=== PATIENT | male | born 1980 | race African-American/Black ===

== ENCOUNTER 2016-10-01 13:24 | Inpatient (IN) | payer OTHER ==
[2016-10-01 13:59] VITALS: BMI 27.7
--- NOTE | 2016-10-01 14:46 | HP ---
CIWA Score - CIWA Score Nausea/Vomitin-No Nausea/No Vomiting Muscle Tremors: 4-Moderate,w/Arms Extend Anxiety: 3 Agitation: 4-Moderately Restless Paroxysmal Sweats: 3 Orientation: 0-Oriented Tacttile Disturbances: 0-None Auditory Disturbances: 0-None Visual Disturbances: 0-None Headache: 0-None Present CIWA-Ar Total Score: 14 Admission ROS BHS - HPI Chief Complaint: I need to stop using and get cleaned. Allergies/Adverse Reactions: Allergies Allergy/AdvReac Type Severity Reaction Status Date / Time ibuprofen Allergy Severe Swelling Verified 10/01/16 14:27 History of Present Illness: pt is a 36yr old male with a history of alcohol, pcp and cocaine dependence seeking detox for treatment. Exam Limitations: No Limitations - Ebola screening Have you traveled outside of the country in the last 21 days: No Have you had contact with anyone from an Ebola affected area: No Have you been sick,other than usual withdrawal symptoms: No Do you have a fever: No - Review of Systems Constitutional: Chills, Diaphoresis, Loss of Appetite, Night Sweats, Changes in sleep EENT: reports: No Symptoms Reported Respiratory: reports: No Symptoms reported Cardiac: reports: No Symptoms Reported GI: reports: No Symptoms Reported : reports: No Symptoms Reported Musculoskeletal: reports: Joint Pain (right knee pain) Integumentary: reports: Flushing, Sweating Neuro: reports: Tingling, Tremors Endocrine: reports: Excessive Sweating, Flushing, Intolerance to Cold, Intolerance to Heat Hematology: reports: No Symptoms Reported Psychiatric: reports: Judgement Intact, Mood/Affect Appropiate, Orientated x3, Agitated, Anxious Other Systems: Reviewed and Negative Patient History - Patient Medical History Hx Anemia: No Hx Asthma: No Hx Chronic Obstructive Pulmonary Disease (COPD): No Hx Cancer: No Hx Cardiac Disorders: No Hx Congestive Heart Failure: No Hx Hypertension: Yes Hx Hypercholesterolemia: No Hx Pacemaker: No HX Cerebrovascular Accident: No Hx Seizures: No Hx Dementia: No Hx Diabetes: No Hx Gastrointestinal Disorders: No Hx Liver Disease: No Hx Genitourinary Disorders: No Hx Sexually Transmitted Disorders: No Hx Renal Disease (ESRD): No Hx Thyroid Disease: No Hx Human Immunodeficiency Virus (HIV): No (negative) Hx Hepatitis C: No Hx Depression: Yes Hx Suicide Attempt: No (denies any S/H ideation at present. did have thoughts in the past) Hx Bipolar Disorder: No Hx Schizophrenia: No - Patient Surgical History Past Surgical History: No - PPD History Previous Implant?: Yes Documented Results: Negative w/o proof PPD to be Administered?: Yes - Reproductive History Patient is a Female of Child Bearing Age (11 -55 yrs old): No - Smoking Cessation Smoking history: Current every day smoker Have you smoked in the past 12 months: Yes Aproximately how many cigarettes per day: 10 Hx Chewing Tobacco Use: Yes Initiated information on smoking cessation: Yes 'Breaking Loose' booklet given: 10/01/16 - Substance & Tx. History Hx Alcohol Use: Yes Hx Substance Use: Yes Substance Use Type: Alcohol, Cocaine, Marijuana Hx Substance Use Treatment: No (this is his first detox) - Substances Abused Cocaine Route: Inhalation Frequency: Daily Amount used: $50-100 Age of first use: 22 Date of Last Use: 09/28/16 PCP Route: Smoking Frequency: Daily Amount used: $60 Age of first use: 35 Date of Last Use: 09/27/16 Alcohol-beer/cognac/rum Route: Oral Frequency: Daily Amount used: 1-6 pk./1 pt. Age of first use: 20 Date of Last Use: 09/28/16 Marijuana Route: Smoking Frequency: Daily Amount used: $40 Age of first use: 16 Date of Last Use: 09/27/16 Family Disease History - Family Disease History Family History: Denies Admission Physical Exam BHS - Vital Signs Vital Signs: Vital Signs - 24 hr 10/01/16 13:45 Temperature 98 F Pulse Rate 87 Respiratory 20 Rate Blood Pressure 158/80 - Physical General Appearance: Yes: Appropriately Dressed, Moderate Distress, Tremorous, Irritable, Sweating, Anxious HEENTM: Yes: Normal Voice, Nasal Congestion Respiratory: Yes: Lungs Clear, Normal Breath Sounds, No Respiratory Distress Neck: Yes: No masses,lesions,Nodules Breast: Yes: Within Normal Limits Cardiology: Yes: Regular Rhythm, Regular Rate, S1, S2 Abdominal: Yes: Normal Bowel Sounds, Non Tender, Soft Genitourinary: Yes: Within Normal Limits Back: Yes: Normal Inspection Musculoskeletal: Yes: Joint Stiffness (right knee pain) Extremities: Yes: Normal Capillary Refill, Normal Inspection, Tremors Neurological: Yes: Fully Oriented, Alert, Normal Response Integumentary: Yes: Normal Color, Diaphoresis Lymphatic: Yes: Within Normal Limits - Diagnostic (1) Alcohol dependence with uncomplicated withdrawal Current Visit: Yes Status: Chronic (2) Nicotine dependence Current Visit: Yes Status: Chronic Qualifiers: Nicotine product type: cigarettes Substance use status: uncomplicated Qualified Code(s): F17.210 - Nicotine dependence, cigarettes, uncomplicated (3) PCP dependence Current Visit: Yes Status: Chronic (4) Knee pain, chronic Current Visit: Yes Status: Chronic Qualifiers: Laterality: right Qualified Code(s): M25.561 - Pain in right knee; G89.29 - Other chronic pain Cleared for Admission S - Detox or Rehab [facility] Level of Care: Medically Managed Detox Regimen/Protocol: Librium S Breath Alcohol Content Breath Alcohol Content: 0 Urine Drug Screen - Results Drug Screen Negative: No Urine Drug Screen Results: MAURIZIO-Cocaine, PCP-Phencyclidine
[2016-10-01] MEDS ORDERED: MAGNESIUM HYDROX 2400MG/30ML ORAL SUSPENSION 30 ML CUP PO PRN (15:02)
[2016-10-01] MEDS ORDERED: P-EPHED 60MG/TRIPROLIDI 2.5MG TABLET PO PRN (15:02)
[2016-10-01] MEDS ORDERED: chlordiazePOXIDE HCL 25 MG CAPSULE PO ONE (15:02)
[2016-10-01] MEDS ORDERED: MAG HYDROX/AL HYDROX/SIMETH 30 ML UNIT-DOSE CUP PO PRN (15:02)
[2016-10-01] MEDS ORDERED: chlordiazePOXIDE HCL 25 MG CAPSULE PO PRN (15:02)
[2016-10-01] MEDS ORDERED: LOPERAMIDE HCL 2 MG CAPSULE PO PRN (15:02)
[2016-10-01] MEDS ORDERED: ACETAMINOPHEN 325 MG TABLET (FP) PO PRN (15:02)
[2016-10-01] MEDS ORDERED: NICOTINE POLACRILEX 4 MG GUM BC PRN (15:02)
[2016-10-01] MEDS ORDERED: MAGNESIUM CITRATE 300 ML BOTTLE PO PRN (15:02)
[2016-10-01] MEDS ORDERED: hydrOXYzine PAMOATE 50 MG CAPSULE (FP) PO PRN (15:02)
[2016-10-01] MEDS ORDERED: guaiFENesin/D-METHORPHAN HB 10 ML UNIT-DOSE CUPS PO PRN (15:02)
[2016-10-01] MEDS ORDERED: MENTHOL/PHENOL 1 EACH UD MM PRN (15:02)
[2016-10-01] MEDS: chlordiazePOXIDE HCL 25 MG CAPSULE PO SCH ×2 (18:38→22:25)
[2016-10-01] MEDS: THIAMINE HCL 100 MG TABLET (FP) PO SCH (22:25)
[2016-10-01] MEDS: diphenhydrAMINE HCL 50 MG CAPSULE PO PRN (22:27)
[2016-10-01 23:31] LABS: URINE APPEARANCE CLEAR; URINE BILIRUBIN NEGATIVE (NEGATIVE); URINE BLOOD NEGATIVE (NEGATIVE); URINE COLOR YELLOW; URINE GLUCOSE (UA) NEGATIVE (NEGATIVE); URINE KETONE TRACE (NEGATIVE); URINE LEUK ESTERASE NEGATIVE (NEGATIVE); URINE NITRITE NEGATIVE (NEGATIVE); URINE UROBILINOGEN NEGATIVE mg/dL (0.2-1.0)
[2016-10-01 23:32] LABS: URINE PROTEIN 1+ (NEGATIVE)
[2016-10-02 00:57] LABS: CALCIUM OXALATE CRYSTALS RARE /hpf (NONE SEEN); URINE HYALINE CAST 1 /lpf; URINE MUCUS MANY; URINE RBC <1 /hpf (0-3); URINE WBC 1 /hpf (3-5)
[2016-10-02] MEDS: chlordiazePOXIDE HCL 25 MG CAPSULE PO SCH ×4 (06:00→22:22)
[2016-10-02 10:08] LABS: ALBUMIN 3.8 g/dl (3.4-5.0); ANION GAP 8 (8-16); CO2 28 mmol/L (21-32)
[2016-10-02 10:11] LABS: ALK PHOS 56 U/L (45-117); BILIRUBIN,TOTAL 0.2 mg/dL (0.2-1.0); CALCIUM 8.8 mg/dL (8.5-10.1); CREATININE 1.2 mg/dL (0.7-1.3); GLUCOSE,RANDOM 105 mg/dL (74-106); SGOT/AST 12 U/L (15-37); SGPT/ALT 24 U/L (12-78); TOT PROT 7.2 g/dl (6.4-8.2)
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
[2016-10-02 10:21] LABS: MCHC 31.8 g/dl (32.0-35.9); MEAN CELL VOLUME 85.1 fl (80-96); MEAN PLT VOLUME 9.6 fl (7.5-11.1); PLATELET COUNT 260 K/MM3 (134-434); RDW 13.5 % (11.9-15.9); WHITE BLOOD COUNT 7.1 K/mm3 (4.0-10.0)
[2016-10-02] MEDS: NICOTINE 21 MG/24 HOURS TOPICAL PATCH TD SCH (10:21)
[2016-10-02] MEDS: PRENATAL VITAMINS W/ FOLIC ACID TABLET (FP) PO SCH (10:21)
--- NOTE | 2016-10-02 12:55 | EKG ---
Test Reason : Blood Pressure : / mmHG Vent. Rate : 065 BPM Atrial Rate : 065 BPM P-R Int : 166 ms QRS Dur : 092 ms QT Int : 404 ms P-R-T Axes : 070 028 040 degrees QTc Int : 420 ms NORMAL SINUS RHYTHM WITH SINUS ARRHYTHMIA NORMAL ECG NO PREVIOUS ECGS AVAILABLE Confirmed by KAEL DUMONT, GABINO ([id number]) on 10/02/2016 12:55:22 PM Referred By: Garrett Redmond Confirmed By:GABINO SCRUGGS MD
[2016-10-02 15:00] LABS: HIV 1 & 2 AB NEGATIVE; HIV 1 AGp24 NEGATIVE
[2016-10-02] MEDS: THIAMINE HCL 100 MG TABLET (FP) PO SCH (22:22)
[2016-10-02] MEDS: diphenhydrAMINE HCL 50 MG CAPSULE PO PRN (22:22)
[2016-10-03] MEDS: chlordiazePOXIDE HCL 25 MG CAPSULE PO SCH ×2 (05:55→10:22)
[2016-10-03] MEDS: NICOTINE 21 MG/24 HOURS TOPICAL PATCH TD SCH (10:22)
[2016-10-03] MEDS: PRENATAL VITAMINS W/ FOLIC ACID TABLET (FP) PO SCH (10:22)
--- NOTE | 2016-10-03 10:40 | PN ---
[facility] CIWA - CIWA Score Nausea/Vomitin-No Nausea/No Vomiting Muscle Tremors: 4-Moderate,w/Arms Extend Anxiety: 4-Mod. Anxious/Guarded Agitation: 4-Moderately Restless Paroxysmal Sweats: 1-Minimal Palms Moist Orientation: 0-Oriented Tacttile Disturbances: 3-Moderate Itch/Numb/Burn Auditory Disturbances: 0-None Visual Disturbances: 0-None Headache: 0-None Present CIWA-Ar Total Score: 16 BHS Progress Note (SOAP) Subjective: ANXIETY, SWEATS, TREMORS,FATIGUE. Objective: 10/03/16 10:39 Vital Signs Temperature 97.7 F 10/03/16 09:25 Pulse Rate 78 10/03/16 09:25 Respiratory Rate 18 10/03/16 09:25 Blood Pressure 128/80 10/03/16 09:25 O2 Sat by Pulse Oximetry (%) Laboratory Last Values WBC 7.1 K/mm3 (4.0-10.0) 10/02/16 06:00 RBC 5.04 M/mm3 (4.00-5.60) 10/02/16 06:00 Hgb 13.6 GM/dL (11.7-16.9) 10/02/16 06:00 Hct 42.9 % (35.4-49) 10/02/16 06:00 MCV 85.1 fl (80-96) 10/02/16 06:00 MCH 27.0 pg (25.7-33.7) 10/02/16 06:00 MCHC 31.8 g/dl (32.0-35.9) L 10/02/16 06:00 RDW 13.5 % (11.9-15.9) 10/02/16 06:00 Plt Count 260 K/MM3 (134-434) 10/02/16 06:00 MPV 9.6 fl (7.5-11.1) 10/02/16 06:00 Sodium 141 mmol/L (136-145) 10/02/16 06:00 Potassium 3.8 mmol/L (3.5-5.1) 10/02/16 06:00 Chloride 105 mmol/L (98-107) 10/02/16 06:00 Carbon Dioxide 28 mmol/L (21-32) 10/02/16 06:00 Anion Gap 8 (8-16) 10/02/16 06:00 BUN 13 mg/dL (7-18) 10/02/16 06:00 Creatinine 1.2 mg/dL (0.7-1.3) 10/02/16 06:00 Creat Clearance w eGFR > 60 (>60) 10/02/16 06:00 Random Glucose 105 mg/dL (74-106) 10/02/16 06:00 Calcium 8.8 mg/dL (8.5-10.1) 10/02/16 06:00 Total Bilirubin 0.2 mg/dL (0.2-1.0) 10/02/16 06:00 AST 12 U/L (15-37) L 10/02/16 06:00 ALT 24 U/L (12-78) 10/02/16 06:00 Alkaline Phosphatase 56 U/L (45-117) 10/02/16 06:00 Total Protein 7.2 g/dl (6.4-8.2) 10/02/16 06:00 Albumin 3.8 g/dl (3.4-5.0) 10/02/16 06:00 Urine Color Yellow 10/01/16 20:47 Urine Appearance Clear 10/01/16 20:47 Urine pH 5.0 (5.0-8.0) 10/01/16 20:47 Ur Specific [place] >= 1.030 (1.005-1.025) H 10/01/16 20:47 Urine Protein 1+ (NEGATIVE) H 10/01/16 20:47 Urine Glucose (UA) Negative (NEGATIVE) 10/01/16 20:47 Urine Ketones Trace (NEGATIVE) H 10/01/16 20:47 Urine Blood Negative (NEGATIVE) 10/01/16 20:47 Urine Nitrite Negative (NEGATIVE) 10/01/16 20:47 Urine Bilirubin Negative (NEGATIVE) 10/01/16 20:47 Urine Urobilinogen Negative mg/dL (0.2-1.0) 10/01/16 20:47 Ur Leukocyte Esterase Negative (NEGATIVE) 10/01/16 20:47 Urine RBC <1 /hpf (0-3) 10/01/16 20:47 Urine WBC 1 /hpf (3-5) 10/01/16 20:47 Calcium Oxalate Crystal Rare /hpf (NONE SEEN) 10/01/16 20:47 Hyaline Casts 1 /lpf 10/01/16 20:47 Urine Mucus Many 10/01/16 20:47 RPR Titer Nonreactive (NONREACTIVE) 10/02/16 06:00 HIV 1&2 Antibody Screen Negative 10/01/16 09:00 HIV P24 Antigen Negative 10/01/16 09:00 Assessment: 10/03/16 10:39 WITHDRAWAL SX Plan: CONTINUE DETOX
[2016-10-03] MEDS: chlordiazePOXIDE 5 MG CAPSULE PO SCH ×2 (17:52→22:22)
[2016-10-03] MEDS: THIAMINE HCL 100 MG TABLET (FP) PO SCH (22:22)
[2016-10-03] MEDS: diphenhydrAMINE HCL 50 MG CAPSULE PO PRN (22:23)
[2016-10-04] MEDS: chlordiazePOXIDE 5 MG CAPSULE PO SCH ×2 (05:51→10:27)
[2016-10-04] MEDS: PRENATAL VITAMINS W/ FOLIC ACID TABLET (FP) PO SCH (10:27)
[2016-10-04] MEDS: NICOTINE 21 MG/24 HOURS TOPICAL PATCH TD SCH (10:28)
--- NOTE | 2016-10-04 12:07 | PN ---
[facility] CIWA - CIWA Score Nausea/Vomitin-No Nausea/No Vomiting Muscle Tremors: 4-Moderate,w/Arms Extend Anxiety: 4-Mod. Anxious/Guarded Agitation: 4-Moderately Restless Paroxysmal Sweats: 1-Minimal Palms Moist Orientation: 0-Oriented Tacttile Disturbances: 3-Moderate Itch/Numb/Burn Auditory Disturbances: 0-None Visual Disturbances: 0-None Headache: 0-None Present CIWA-Ar Total Score: 16 BHS Progress Note (SOAP) Subjective: DECREASED ANXIETY,SWEATS,TREMORS. Objective: 10/04/16 12:07 Vital Signs Temperature 98.2 F 10/04/16 10:04 Pulse Rate 78 10/04/16 10:04 Respiratory Rate 18 10/04/16 10:04 Blood Pressure 124/77 10/04/16 10:04 O2 Sat by Pulse Oximetry (%) Laboratory Last Values WBC 7.1 K/mm3 (4.0-10.0) 10/02/16 06:00 RBC 5.04 M/mm3 (4.00-5.60) 10/02/16 06:00 Hgb 13.6 GM/dL (11.7-16.9) 10/02/16 06:00 Hct 42.9 % (35.4-49) 10/02/16 06:00 MCV 85.1 fl (80-96) 10/02/16 06:00 MCH 27.0 pg (25.7-33.7) 10/02/16 06:00 MCHC 31.8 g/dl (32.0-35.9) L 10/02/16 06:00 RDW 13.5 % (11.9-15.9) 10/02/16 06:00 Plt Count 260 K/MM3 (134-434) 10/02/16 06:00 MPV 9.6 fl (7.5-11.1) 10/02/16 06:00 Sodium 141 mmol/L (136-145) 10/02/16 06:00 Potassium 3.8 mmol/L (3.5-5.1) 10/02/16 06:00 Chloride 105 mmol/L (98-107) 10/02/16 06:00 Carbon Dioxide 28 mmol/L (21-32) 10/02/16 06:00 Anion Gap 8 (8-16) 10/02/16 06:00 BUN 13 mg/dL (7-18) 10/02/16 06:00 Creatinine 1.2 mg/dL (0.7-1.3) 10/02/16 06:00 Creat Clearance w eGFR > 60 (>60) 10/02/16 06:00 Random Glucose 105 mg/dL (74-106) 10/02/16 06:00 Calcium 8.8 mg/dL (8.5-10.1) 10/02/16 06:00 Total Bilirubin 0.2 mg/dL (0.2-1.0) 10/02/16 06:00 AST 12 U/L (15-37) L 10/02/16 06:00 ALT 24 U/L (12-78) 10/02/16 06:00 Alkaline Phosphatase 56 U/L (45-117) 10/02/16 06:00 Total Protein 7.2 g/dl (6.4-8.2) 10/02/16 06:00 Albumin 3.8 g/dl (3.4-5.0) 10/02/16 06:00 Urine Color Yellow 10/01/16 20:47 Urine Appearance Clear 10/01/16 20:47 Urine pH 5.0 (5.0-8.0) 10/01/16 20:47 Ur Specific [place] >= 1.030 (1.005-1.025) H 10/01/16 20:47 Urine Protein 1+ (NEGATIVE) H 10/01/16 20:47 Urine Glucose (UA) Negative (NEGATIVE) 10/01/16 20:47 Urine Ketones Trace (NEGATIVE) H 10/01/16 20:47 Urine Blood Negative (NEGATIVE) 10/01/16 20:47 Urine Nitrite Negative (NEGATIVE) 10/01/16 20:47 Urine Bilirubin Negative (NEGATIVE) 10/01/16 20:47 Urine Urobilinogen Negative mg/dL (0.2-1.0) 10/01/16 20:47 Ur Leukocyte Esterase Negative (NEGATIVE) 10/01/16 20:47 Urine RBC <1 /hpf (0-3) 10/01/16 20:47 Urine WBC 1 /hpf (3-5) 10/01/16 20:47 Calcium Oxalate Crystal Rare /hpf (NONE SEEN) 10/01/16 20:47 Hyaline Casts 1 /lpf 10/01/16 20:47 Urine Mucus Many 10/01/16 20:47 RPR Titer Nonreactive (NONREACTIVE) 10/02/16 06:00 HIV 1&2 Antibody Screen Negative 10/01/16 09:00 HIV P24 Antigen Negative 10/01/16 09:00 Assessment: 10/04/16 12:07 WITHDRAWAL SX Plan: CONTINUE DETOX
[2016-10-04] MEDS: chlordiazePOXIDE HCL 10 MG CAPSULE PO SCH ×2 (17:46→22:16)
[2016-10-04] MEDS: diphenhydrAMINE HCL 50 MG CAPSULE PO PRN (22:16)
[2016-10-04] MEDS: THIAMINE HCL 100 MG TABLET (FP) PO SCH (22:16)
[2016-10-05] MEDS: chlordiazePOXIDE HCL 10 MG CAPSULE PO SCH ×2 (05:29→10:29)
[2016-10-05 06:47] VITALS: TEMP 96.9
[2016-10-05 10:26] VITALS: BP 120/78; PULSE 77
[2016-10-05] MEDS: NICOTINE 21 MG/24 HOURS TOPICAL PATCH TD SCH (10:29)
[2016-10-05] MEDS: PRENATAL VITAMINS W/ FOLIC ACID TABLET (FP) PO SCH (10:29)
== END 2016-10-05 13:45 | disposition other institution (70) | DRG 897 ==
LOC: YASAS 13:24 → Y3N 16:59
PROVIDERS: ADMIT Internal Medicine; ATTEND Internal Medicine
PROC: HZ2ZZZZ Detoxification Services for Substance Abuse Treatment (ICD-10-PCS; principal; 2016-10-01)
DX: F10.230 Alcohol dependence with withdrawal, uncomplicated (principal); F14.20 Cocaine dependence, uncomplicated; F16.20 Hallucinogen dependence, uncomplicated; F12.20 Cannabis dependence, uncomplicated; F17.210 Nicotine dependence, cigarettes, uncomplicated; F19.24 Other psychoactive substance dependence with psychoactive substance-induced mood disorder; I10 Essential (primary) hypertension; M25.561 Pain in right knee; G89.29 Other chronic pain; Z88.6 Allergy status to analgesic agent
CPT/HCPCS: 36415; 80053; 81003; 81015; 85027; 86593; 87389; 93005; 93010

== ENCOUNTER 2016-10-05 13:36 | Inpatient (IN) | payer OTHER ==
--- NOTE | 2016-10-05 15:07 | HP ---
EUSEBIO DUMONT Rehab Assess/Revision - Admission History Admitted to Rehab from: [facility] [address] [place] Date of Admission to Rehab: 10/05/16 - Findings Detox History & Physical reviewed: Yes Concur with findings: Yes Comments/Additional Findings: for rehab as protocol
[2016-10-05] MEDS ORDERED: MAGNESIUM CITRATE 300 ML BOTTLE PO PRN (15:09)
[2016-10-05] MEDS ORDERED: MAGNESIUM HYDROX 2400MG/30ML ORAL SUSPENSION 30 ML CUP PO PRN (15:09)
[2016-10-05] MEDS ORDERED: guaiFENesin/D-METHORPHAN HB 10 ML UNIT-DOSE CUPS PO PRN (15:09)
[2016-10-05] MEDS ORDERED: hydrOXYzine PAMOATE 50 MG CAPSULE (FP) PO PRN (15:09)
[2016-10-05] MEDS ORDERED: LOPERAMIDE HCL 2 MG CAPSULE PO PRN (15:09)
[2016-10-05] MEDS ORDERED: MAG HYDROX/AL HYDROX/SIMETH 30 ML UNIT-DOSE CUP PO PRN (15:09)
[2016-10-05] MEDS ORDERED: MENTHOL/PHENOL 1 EACH UD MM PRN (15:09)
[2016-10-05] MEDS ORDERED: P-EPHED 60MG/TRIPROLIDI 2.5MG TABLET PO PRN (15:09)
[2016-10-05] MEDS ORDERED: ACETAMINOPHEN 325 MG TABLET (FP) PO PRN (15:09)
[2016-10-05] MEDS: THIAMINE HCL 100 MG TABLET (FP) PO SCH ×2 (21:35→21:55)
[2016-10-05] MEDS: diphenhydrAMINE HCL 50 MG CAPSULE PO PRN (21:52)
[2016-10-06] MEDS: PRENATAL VITAMINS W/ FOLIC ACID TABLET (FP) PO SCH (10:10)
[2016-10-06] MEDS: NICOTINE 21 MG/24 HOURS TOPICAL PATCH TD SCH (10:10)
[2016-10-06] MEDS: diphenhydrAMINE HCL 50 MG CAPSULE PO PRN (21:07)
[2016-10-06] MEDS: THIAMINE HCL 100 MG TABLET (FP) PO SCH (21:07)
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
[2016-10-07] MEDS: PRENATAL VITAMINS W/ FOLIC ACID TABLET (FP) PO SCH (09:50)
[2016-10-07] MEDS: NICOTINE 21 MG/24 HOURS TOPICAL PATCH TD SCH (09:51)
[2016-10-07] MEDS: THIAMINE HCL 100 MG TABLET (FP) PO SCH (21:16)
[2016-10-07] MEDS: diphenhydrAMINE HCL 50 MG CAPSULE PO PRN (21:16)
[2016-10-08] MEDS: PRENATAL VITAMINS W/ FOLIC ACID TABLET (FP) PO SCH (09:59)
[2016-10-08] MEDS: NICOTINE 21 MG/24 HOURS TOPICAL PATCH TD SCH (09:59)
[2016-10-08] MEDS: THIAMINE HCL 100 MG TABLET (FP) PO SCH (21:16)
[2016-10-08] MEDS: diphenhydrAMINE HCL 50 MG CAPSULE PO PRN (21:17)
[2016-10-09] MEDS: NICOTINE 21 MG/24 HOURS TOPICAL PATCH TD SCH (10:01)
[2016-10-09] MEDS: PRENATAL VITAMINS W/ FOLIC ACID TABLET (FP) PO SCH (10:01)
[2016-10-09] MEDS: THIAMINE HCL 100 MG TABLET (FP) PO SCH (21:22)
[2016-10-09] MEDS: diphenhydrAMINE HCL 50 MG CAPSULE PO PRN (21:22)
[2016-10-10] MEDS: PRENATAL VITAMINS W/ FOLIC ACID TABLET (FP) PO SCH (10:10)
[2016-10-10] MEDS: NICOTINE 21 MG/24 HOURS TOPICAL PATCH TD SCH (10:10)
[2016-10-10] MEDS: THIAMINE HCL 100 MG TABLET (FP) PO SCH (21:30)
[2016-10-10] MEDS: diphenhydrAMINE HCL 50 MG CAPSULE PO PRN (21:31)
[2016-10-11] MEDS: NICOTINE 21 MG/24 HOURS TOPICAL PATCH TD SCH (10:07)
[2016-10-11] MEDS: PRENATAL VITAMINS W/ FOLIC ACID TABLET (FP) PO SCH (10:08)
[2016-10-11] MEDS: THIAMINE HCL 100 MG TABLET (FP) PO SCH (21:25)
[2016-10-11] MEDS: diphenhydrAMINE HCL 50 MG CAPSULE PO PRN (21:25)
[2016-10-12] MEDS: NICOTINE 21 MG/24 HOURS TOPICAL PATCH TD SCH (09:43)
[2016-10-12] MEDS: PRENATAL VITAMINS W/ FOLIC ACID TABLET (FP) PO SCH (09:43)
[2016-10-12] MEDS: THIAMINE HCL 100 MG TABLET (FP) PO SCH (21:35)
[2016-10-12] MEDS: diphenhydrAMINE HCL 50 MG CAPSULE PO PRN (21:35)
[2016-10-13] MEDS: PRENATAL VITAMINS W/ FOLIC ACID TABLET (FP) PO SCH (09:56)
[2016-10-13] MEDS: NICOTINE 21 MG/24 HOURS TOPICAL PATCH TD SCH (09:57)
[2016-10-13] MEDS: THIAMINE HCL 100 MG TABLET (FP) PO SCH (21:18)
[2016-10-13] MEDS: diphenhydrAMINE HCL 50 MG CAPSULE PO PRN (21:18)
[2016-10-14 06:50] VITALS: BP 115/73; PULSE 74; TEMP 97.6
--- NOTE | 2016-10-14 06:50 | PN ---
Psychiatric Progress Note Vital Signs: Vital Signs Period Temp Pulse Resp BP Sys/Calderón Pulse Ox Last 24 Hr 97.5 F 79 18-20 163/91 Date of Session: 10/14/16 Chief Complaint:: Discharge Note HPI: Patient addressing Alcohol, Cocaine and Phencyclidine Dependence comorbid with Nicotine Dependence and Substance-Induced Mood Disorder ROS: Chronic knee pain Current Medications: Active Medications Generic Name Dose Route Start Last Admin Trade Name Freq PRN Reason Stop Dose Admin Acetaminophen 650 mg 10/05/16 15:09 10/09/16 10:02 Tylenol - PO 650 mg Q4H PRN Administration FEVER OR PAIN Al Hydroxide/Mg Hydroxide 30 ml 10/05/16 15:09 Mylanta Oral Suspension - PO Q6H PRN DYSPEPSIA Diphenhydramine HCl 50 mg 10/05/16 15:09 10/13/16 21:18 Benadryl - PO 50 mg HSMR1 PRN Administration FOR ITCHING Eucalyptus/Menthol/Phenol/Sorbitol 1 each 10/05/16 15:09 Cepastat Lozenge - MM Q4H PRN SORE THROAT Guaifenesin 10 ml 10/05/16 15:09 Robitussin Dm - PO Q6H PRN COUGH Hydroxyzine Pamoate 50 mg 10/05/16 15:09 Vistaril - PO Q4H PRN AGITATION Loperamide HCl 4 mg 10/05/16 15:09 Imodium - PO Q6H PRN DIARRHEA Magnesium Hydroxide 30 ml 10/05/16 15:09 Milk Of Magnesia - PO DAILY PRN CONSTIPATION Nicotine 21 mg 10/06/16 10:00 10/13/16 09:57 Nicoderm Patch - TD Not Given DAILY JULIO Multivit/Folic Acid/Iron 1 tab 10/06/16 10:00 10/13/16 09:56 Vitamins (Sjr) - PO 1 tab DAILY JULIO Administration Pseudoephedrine/Triprolidine 1 combo 10/05/16 15:09 10/13/16 12:53 Actifed - PO 1 combo TID PRN Administration NASAL CONGESTION Thiamine HCl 100 mg 10/05/16 22:00 10/13/16 21:18 Vitamin B1 - PO 100 mg HS JULIO Administration Current Side Effect: No Lab tests ordered: Yes Lab tests reviewed: Yes Provider note:: Patient has completed this program today. He has met his treatment goals and will continue to address his issues in outpatient treatment at [facility] in [place], [place]. Told specifications writer that from his participation in this program, he has learned about his triggers and has acquired the knowledge and skills to deal with them. He is stable for discharge today Total face to face time:: 35 Mental Status Exam - Mental Status Exam Alert and Oriented to: Time, Place, Person Cognitive Function: Fair Mood: Hopeful, Euthymic Affect: Appropriate Patient Behavior: Cooperative Speech Pattern: Clear Voice Loudness: Normal Thought Process: Intact, Goal Oriented Thought Disorder: Not Present Hallucinations: Denies Suicidal Ideation: Denies Homicidal Ideation: Denies Insight/Judgement: Fair Sleep: Fair Appetite: Good Muscle strength/Tone: Normal Gait/Station: Normal Psychiatric Treatment Plan - Problem List (1) Alcohol dependence Current Visit: Yes (2) Cocaine dependence Current Visit: Yes (3) Phencyclidine dependence Current Visit: Yes (4) Nicotine dependence Current Visit: Yes (5) Substance induced mood disorder Current Visit: Yes (6) Knee pain, chronic Current Visit: Yes Qualifiers: Laterality: right Qualified Code(s): M25.561 - Pain in right knee; G89.29 - Other chronic pain Initial treatment plan: Patient is discharged today and referrred to [facility] in [place], [place] for outpatient treatment
[2016-10-14] MEDS: PRENATAL VITAMINS W/ FOLIC ACID TABLET (FP) PO SCH (09:53)
[2016-10-14] MEDS: NICOTINE 21 MG/24 HOURS TOPICAL PATCH TD SCH (09:53)
== END 2016-10-14 10:10 | disposition home or self-care (01) | DRG 895 ==
LOC: YASAS 13:36 → Y3W 13:40
PROVIDERS: ADMIT Psychiatry & Neurology Psychiatry; ATTEND Psychiatry & Neurology Psychiatry
PROC: HZ42ZZZ Group Counseling for Substance Abuse Treatment, Cognitive-Behavioral (ICD-10-PCS; principal; 2016-10-05)
DX: F10.20 Alcohol dependence, uncomplicated (principal); F16.20 Hallucinogen dependence, uncomplicated; F14.20 Cocaine dependence, uncomplicated; F17.210 Nicotine dependence, cigarettes, uncomplicated; F19.24 Other psychoactive substance dependence with psychoactive substance-induced mood disorder; M25.561 Pain in right knee; G89.29 Other chronic pain; Z88.6 Allergy status to analgesic agent